=== PATIENT | female | born 1970 | race Caucasian/White ===

== ENCOUNTER → 2023-11-07 | Outpatient (CLI) | payer BC | END | disposition home or self-care (01) | LOC: RAH 10:22 | PROVIDERS: ATTEND Family Medicine | DX: Z12.31 Encounter for screening mammogram for malignant neoplasm of breast (principal) | CPT/HCPCS: 77067 ==

== ENCOUNTER → 2024-11-10 | Outpatient (CLI) | payer BC | END | disposition home or self-care (01) | LOC: RAH 13:15 | PROVIDERS: ATTEND Nurse Practitioner Family | DX: Z12.31 Encounter for screening mammogram for malignant neoplasm of breast (principal) | CPT/HCPCS: 77067 ==